=== PATIENT | female | born 1975 | race Caucasian/White ===

== ENCOUNTER 2016-07-08 13:23 | Emergency (ER) | payer MEDICAID ==
[2016-07-08 13:33] VITALS: BP 150/92
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
== END 2016-07-08 15:15 | disposition home or self-care (01) ==
LOC: ER 13:23
DX: K08.89 Other specified disorders of teeth and supporting structures (principal); F17.210 Nicotine dependence, cigarettes, uncomplicated
CPT/HCPCS: 99282

== ENCOUNTER 2017-04-27 21:10 | Emergency (ER) | payer MEDICAID ==
[2017-04-27 23:38] VITALS: BP 147/98
[2017-04-27] MEDS ORDERED: HYDROCODONE/ACETAMINOPHEN 5-325 MG TABLET PO ONE (23:38)
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
--- NOTE | 2017-04-28 00:05 | RADIOLOGY REPORT (SQ) ---
EXAM DESCRIPTION: HAND RIGHT 3 VIEWS COMPLETED DATE/TIME: 04/27/2017 10:47 pm REASON FOR STUDY: Pain s/p injury COMPARISON: None. EXAM PARAMETERS: NUMBER OF VIEWS: Three views. TECHNIQUE: AP, lateral and oblique radiographic images acquired of the right hand. LIMITATIONS: None. FINDINGS: MINERALIZATION: Normal. BONES: No acute fracture or dislocation. No worrisome bone lesions. JOINTS: No effusions. SOFT TISSUES: No soft tissue swelling. No foreign body. OTHER: No other significant finding. IMPRESSION: NEGATIVE STUDY OF THE RIGHT HAND. NO RADIOGRAPHIC EVIDENCE OF ACUTE INJURY. TECHNICAL DOCUMENTATION: JOB ID: [id number] [employer]- All Rights Reserved
== END 2017-04-27 23:49 | disposition home or self-care (01) ==
LOC: ER 21:10
DX: S60.031A Contusion of right middle finger without damage to nail, initial encounter (principal); X58.XXXA Exposure to other specified factors, initial encounter; F17.200 Nicotine dependence, unspecified, uncomplicated
CPT/HCPCS: 99283

== ENCOUNTER 2017-09-01 23:10 | Emergency (ER) | payer MEDICAID ==
[2017-09-02] MEDS ORDERED: IBUPROFEN 600 MG TABLET PO ONE (00:48)
[2017-09-02] MEDS ORDERED: PENICILLIN V POTASSIUM 500 MG TABLET PO ONE (00:48)
[2017-09-02] MEDS ORDERED: ACETAMINOPHEN 325 MG TABLET PO ONE (00:48)
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
[2017-09-02] MEDS ORDERED: MORPHINE SULFATE IR 15 MG TABLET PO ONE (00:53)
[2017-09-02 01:06] VITALS: BP 181/81
== END 2017-09-02 01:06 | disposition home or self-care (01) ==
LOC: ER 23:10
DX: K02.9 Dental caries, unspecified (principal); K08.89 Other specified disorders of teeth and supporting structures
CPT/HCPCS: 99282; J3490 ×3

== ENCOUNTER 2018-06-22 03:10 | Emergency (ER) | payer SELFPAY ==
[2018-06-22 03:19] VITALS: BP 144/106
[2018-06-22] MEDS ORDERED: KETOROLAC TROMETHAMINE 60 MG/2 ML SDV IM ONE (03:53)
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
== END 2018-06-22 04:11 | disposition home or self-care (01) ==
LOC: ER 03:10
DX: R25.2 Cramp and spasm (principal); M79.10 Myalgia, unspecified site; Z90.81 Acquired absence of spleen
CPT/HCPCS: 99283; 96372; J1885

== ENCOUNTER 2018-07-09 14:51 | Emergency (ER) | payer SELFPAY ==
[2018-07-09] MEDS ORDERED: HYDROCODONE/ACETAMINOPHEN 5-325 MG TABLET PO ONE ×2 (16:38→21:25)
[2018-07-09] MEDS ORDERED: DIPH/PERTUSS(ACELL)/TETANUS VAC/PF 0.5 ML SYR (>=10YO) IM ONE (16:38)
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
--- NOTE | 2018-07-09 17:07 | RADIOLOGY REPORT (SQ) ---
EXAM DESCRIPTION: HAND BILATERAL 3 VIEWS COMPLETED DATE/TIME: 07/09/2018 4:56 pm REASON FOR STUDY: dog bite concern for foreign body dog bite to the right and left hand, persistent swelling, evaluate for retained foreign body COMPARISON: None. EXAM PARAMETERS: NUMBER OF VIEWS: Three views. TECHNIQUE: AP, lateral and oblique radiographic images acquired of the right and left hand. LIMITATIONS: None. FINDINGS: MINERALIZATION: Normal. BONES: No acute fracture or dislocation. No worrisome bone lesions. No bony puncture lesion from do g bite is identified. JOINTS: No effusions. SOFT TISSUES: Diffuse dorsal right hand and dorsal left hand soft tissue swelling with multiple air b ubbles from dog bite. No retained radiopaque foreign body. . OTHER: No other significant finding. IMPRESSION: No acute fracture. No retained foreign body. TECHNICAL DOCUMENTATION: JOB ID: [id number] [employer]- All Rights Reserved Reading location - IP/workstation name: [email or web address]
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
[2018-07-09] MEDS ORDERED: AMOXICILLIN TR/POT CLAVULANATE 500-125 MG TAB PO ONE ×2 (21:10→21:12)
[2018-07-09] MEDS ORDERED: HYDROCODONE/ACETAMINOPHEN 5-325 MG (6 TAB/ER DISP) PO PRN (21:15)
[2018-07-09 23:00] VITALS: BP 153/84
== END 2018-07-09 23:11 | disposition home or self-care (01) ==
LOC: ER 14:51
DX: S61.451A Open bite of right hand, initial encounter (principal); W54.0XXA Bitten by dog, initial encounter; Y93.F9 Activity, other caregiving; Z23 Encounter for immunization; F17.200 Nicotine dependence, unspecified, uncomplicated
CPT/HCPCS: 90471; 90715; 99283

== ENCOUNTER 2019-01-17 15:28 | Emergency (ER) | payer SELFPAY ==
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
--- NOTE | 2019-01-17 18:23 | RADIOLOGY REPORT (SQ) ---
EXAM DESCRIPTION: ELBOW LEFT AP/LATERAL COMPLETED DATE/TIME: 01/17/2019 6:13 pm REASON FOR STUDY: pain, swelling, abscess COMPARISON: None. EXAM PARAMETERS: NUMBER OF VIEWS: Two view. TECHNIQUE: AP and lateral radiographic images acquired of the left elbow. LIMITATIONS: None. FINDINGS: MINERALIZATION: Normal. BONES: No acute fracture or dislocation. No worrisome bone lesions. JOINTS: No effusion. SOFT TISSUES: Diffuse soft tissue swelling. No radiopaque foreign body. OTHER: No other significant finding. IMPRESSION: NO FRACTURE.Diffuse soft tissue swelling. No radiopaque foreign body. TECHNICAL DOCUMENTATION: JOB ID: [id number] [place]-72 2010 [employer]- All Rights Reserved Reading location - IP/workstation name: [email or web address]
[2019-01-17 18:43] LABS: ABSOLUTE BASOPHILS # (AUTO) 0.1 10^3/uL (0.0-0.2); ABSOLUTE EOSINOPHILS # (AUTO) 0.3 10^3/uL (0.0-0.6); ABSOLUTE LYMPHOCYTES (AUTO) 2.4 10^3/uL (0.5-4.7); ABSOLUTE MONOCYTES (AUTO) 1.2 10^3/uL (0.1-1.4); ABSOLUTE NEUT (AUTO) 8.3 10^3/uL (1.7-8.2); BASOPHILS % (AUTO) 0.9 % (0-2); EOSINOPHILS % (AUTO) 2.7 % (0-6); HEMATOCRIT 27.1 % (36.0-47.0); HEMOGLOBIN 8.4 g/dL (12.0-15.5); LYMPHOCYTES % (AUTO) 19.1 % (13-45); MEAN CORPUSCULAR HEMOGLOBIN 21.1 pg (27.0-33.4); MEAN CORPUSCULAR HGB CONC 30.9 g/dL (32.0-36.0); MEAN CORPUSCULAR VOLUME 68 fl (80-97); MONOCYTES % (AUTO) 9.7 % (3-13); PLATELET COUNT 601 10^3/uL (150-450); RED BLOOD COUNT 3.97 10^6/uL (3.72-5.28); RED CELL DISTRIBUTION WIDTH 20.2 % (11.5-14.0); SEGMENTED NEUTROPHILS % (AUTO) 67.6 % (42-78); TOTAL CELLS COUNTED % (AUTO) 100 %; WHITE BLOOD COUNT 12.3 10^3/uL (4.0-10.5)
[2019-01-17 18:59] LABS: ALANINE AMINOTRANSFERASE 18 U/L (9-52); ALBUMIN 3.9 g/dL (3.5-5.0); ALKALINE PHOSPHATASE 96 U/L (38-126); ANION GAP 11 (5-19); ASPARTATE AMINO TRANSFERASE 37 U/L (14-36); BILIRUBIN,DIRECT 0.3 mg/dL (0.0-0.4); BILIRUBIN,TOTAL 0.5 mg/dL (0.2-1.3); BLOOD UREA NITROGEN 13 mg/dL (7-20); CALCIUM 9.4 mg/dL (8.4-10.2); CARBON DIOXIDE 28 mmol/L (22-30); CHLORIDE 96 mmol/L (98-107); GLUCOSE 120 mg/dL (75-110); POTASSIUM 4.2 mmol/L (3.6-5.0); SODIUM 135.3 mmol/L (137-145); TOTAL PROTEIN 7.5 g/dL (6.3-8.2)
[2019-01-17 21:44] VITALS: BP 150/98
== END 2019-01-17 23:46 | disposition left against medical advice (07) ==
LOC: ER 15:28
DX: L02.414 Cutaneous abscess of left upper limb (principal); L98.499 Non-pressure chronic ulcer of skin of other sites with unspecified severity; Z20.818 Contact with and (suspected) exposure to other bacterial communicable diseases; Z53.20 Procedure and treatment not carried out because of patient's decision for unspecified reasons
CPT/HCPCS: 36415; 80053; 85025; 87040; 99281

== ENCOUNTER 2019-02-10 04:22 | Emergency (ER) | payer SELFPAY ==
[2019-02-10] MEDS ORDERED: LIDOCAINE 1% INJ-PF (10 MG/ML) 30 ML SDV INJ ONE (04:43)
[2019-02-10] MEDS ORDERED: OXYCODONE-ACETAMINOPHEN 5-325 MG TABLET PO ONE (04:44)
[2019-02-10] MEDS ORDERED: LIDOCAINE 4% TRANSPARENT DRESSING 5 GM KIT TP ONE (04:44)
[2019-02-10] MEDS ORDERED: PROMETHAZINE HCL 25 MG TABLET PO ONE (04:44)
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
[2019-02-10 05:11] LABS: APPEARANCE,URINE CLEAR; BILIRUBIN,URINE NEGATIVE (NEGATIVE); COLOR,URINE YELLOW; GLUCOSE, URINE NEGATIVE (NEGATIVE); KETONES,URINE NEGATIVE (NEGATIVE); LEUKOCYTE ESTERASE,URINE NEGATIVE (NEGATIVE); NITRITE,URINE NEGATIVE (NEGATIVE); PROTEIN,URINE NEGATIVE (NEGATIVE); URINE SPECIFIC GRAVITY 1.006; UROBILINOGEN,URINE NEGATIVE mg/dL (<2.0)
[2019-02-10 05:17] LABS: HEMATOCRIT 27.9 % (36.0-47.0); HEMOGLOBIN 8.6 g/dL (12.0-15.5); MEAN CORPUSCULAR HEMOGLOBIN 21.3 pg (27.0-33.4); MEAN CORPUSCULAR HGB CONC 30.7 g/dL (32.0-36.0); MEAN CORPUSCULAR VOLUME 69 fl (80-97); PLATELET COUNT 737 10^3/uL (150-450); RED BLOOD COUNT 4.03 10^6/uL (3.72-5.28); RED CELL DISTRIBUTION WIDTH 20.5 % (11.5-14.0); WHITE BLOOD COUNT 18.7 10^3/uL (4.0-10.5)
[2019-02-10 05:27] LABS: URINE AMPHETAMINES SCREEN NEGATIVE; URINE BARBITURATES SCREEN NEGATIVE; URINE BENZODIAZEPINES SCREEN NEGATIVE; URINE COCAINE SCREEN NEGATIVE; URINE MARIJUANA (THC) SCREEN NEGATIVE; URINE METHADONE SCREEN NEGATIVE; URINE PHENCYCLIDINE SCREEN NEGATIVE
[2019-02-10 05:32] LABS: ANION GAP 13 (5-19); BLOOD UREA NITROGEN 13 mg/dL (7-20); CALCIUM 9.7 mg/dL (8.4-10.2); CARBON DIOXIDE 25 mmol/L (22-30); CHLORIDE 102 mmol/L (98-107); GLUCOSE 144 mg/dL (75-110); POTASSIUM 3.8 mmol/L (3.6-5.0)
[2019-02-10 06:39] LABS: ABSOLUTE LYMPHOCYTES# (MANUAL) 1.1 10^3/uL (0.5-4.7); ABSOLUTE MONOCYTES # (MANUAL) 0.4 10^3/uL (0.1-1.4); BASOPHILS % (MANUAL) 0 % (0-2); EOSINOPHILS % (MANUAL) 0 % (0-6); LYMPHOCYTES % (MANUAL) 6 % (13-45); MONOCYTES % (MANUAL) 2 % (3-13); SEGMENTED NEUTROPHILS % (MAN) 92 % (42-78); TOTAL CELLS COUNTED 100
[2019-02-10 06:40] LABS: ANISOCYTOSIS 2+; HYPOCHROMASIA 3+
[2019-02-10 06:41] LABS: PLATELET COMMENT INCREASED
[2019-02-10] MEDS ORDERED: SULFAMETHOXAZOLE/TRIMETHOPRIM 800-160 MG TABLET PO ONE (07:07)
[2019-02-10] MEDS ORDERED: CEPHALEXIN 500 MG CAPSULE PO ONE (07:07)
--- NOTE | 2019-02-10 07:11 | RADIOLOGY REPORT (SQ) ---
EXAM DESCRIPTION: XR FOREARM 2 VIEWS BILATERAL COMPLETED DATE/TME: 02/10/2019 04:42 CLINICAL HISTORY: 43 years, Female, swelling; needles in arms? COMPARISON: None. FINDINGS: 2 views of the bilateral forearms. Edema in the subcutaneous soft tissues of the forms bilaterally. No radiopaque foreign body identified. IMPRESSION: 1. No radiopaque foreign body identified in the bilateral forearms. copyright 2010 [facility]- All Rights Reserved
--- NOTE | 2019-02-10 07:11 | RADIOLOGY REPORT (SQ) ---
EXAM DESCRIPTION: XR CHEST 1 VIEW COMPLETED DATE/TME: 02/10/2019 05:16 CLINICAL HISTORY: chest pain COMPARISON: None. FINDINGS: Single frontal view of the chest. Cardiomediastinal silhouette: Normal size and contour. Lungs: No consolidation, pneumothorax, or pleural effusion. Leads overlie the chest. Low lung volumes. Bones: No acute osseous abnormality. Upper abdomen: No abnormality identified. IMPRESSION: 1. No acute pulmonary process identified.
[2019-02-10 07:14] VITALS: BP 148/77
--- NOTE | 2019-02-10 07:48 | EKG REPORT ---
SEVERITY:- ABNORMAL ECG - SINUS RHYTHM PROBABLE LEFT ATRIAL ABNORMALITY PROLONGED QT INTERVAL : Confirmed by: Caesar Hebert MD 10-Feb-2019 07:48:03
== END 2019-02-10 07:20 | disposition home or self-care (01) ==
LOC: ER 04:22
DX: L03.119 Cellulitis of unspecified part of limb (principal); L02.414 Cutaneous abscess of left upper limb; L02.413 Cutaneous abscess of right upper limb; R07.89 Other chest pain; D72.829 Elevated white blood cell count, unspecified; F12.10 Cannabis abuse, uncomplicated; M79.7 Fibromyalgia; Z98.890 Other specified postprocedural states; Z79.899 Other long term (current) drug therapy
CPT/HCPCS: 93005; 36415; 84703; 85025; 80048; 81001; 84484; 80307; 71045; 73090; 93010; J3490 ×2; 99285